=== PATIENT | male | born 1985 | race Caucasian/White ===

== ENCOUNTER 2019-12-31 15:01 | Emergency (ER) | payer MEDICAID ==
[~2019-12-31] VITALS: Ht 162.6 cm; Wt 59.0 kg
[~2019-12-31 15:01] MED LIST: ATEN50TA PO; FOLI1TAB87 PO; LOSA25TA26; NIFE60TA18 PO; RENAGEL PO; [UNRECOGNIZED DRUG - OTHER] PO
[2019-12-31 18:24] LABS: CHLORIDE 99 mEq/L (98-107)
[2019-12-31 18:27] LABS: BASOPHILS % 0.1 % (0.0-2.0); EOSINOPHILS % 0.9 % (0.0-5.0); HEMATOCRIT. 36.7 % (42.0-52.0); HEMOGLOBIN. 12.5 g/dL (14.0-18.0); LYMPHOCYTES % 16.9 % (20.0-50.0); MEAN CORPUSCULAR HEMOGLOBIN 32.7 pg (28.0-32.0); MEAN CORPUSCULAR VOLUME 96.2 fL (80.0-94.0); MONOCYTES % 7.6 % (2.0-8.0); NEUTROPHILS % 74.5 % (40.0-76.0); PLATELET 202 x1000/uL (130-400); RED BLOOD CELL COUNT 3.81 mill/uL (4.7-6.1); RED CELL DISTRIBUTION WIDTH 13.5 % (11.6-14.6)
[2019-12-31 20:00] VITALS: BP 134/86
== END 2019-12-31 20:43 | disposition home or self-care (01) ==
LOC: ER 15:01
DX: J06.9 Acute upper respiratory infection, unspecified (principal); Z03.818 Encounter for observation for suspected exposure to other biological agents ruled out; Z99.2 Dependence on renal dialysis; Z79.899 Other long term (current) drug therapy
CPT/HCPCS: 36415; 71045; 80053; 83880; 84484; 85025; 87635; 87804; 93005; 99285

== ENCOUNTER 2020-12-11 16:58 | Emergency (ER) | payer MEDICAID ==
[~2020-12-11] VITALS: Ht 162.6 cm; Wt 54.0 kg
[2020-12-11 18:57] VITALS: BP 115/71
== END 2020-12-11 19:17 | disposition home or self-care (01) ==
LOC: ER 16:58
DX: S80.02XA Contusion of left knee, initial encounter (principal); W18.39XA Other fall on same level, initial encounter; Y93.89 Activity, other specified; Y92.89 Other specified places as the place of occurrence of the external cause; Y99.8 Other external cause status; Z99.2 Dependence on renal dialysis; Z98.890 Other specified postprocedural states; Z79.899 Other long term (current) drug therapy
CPT/HCPCS: 73564; 99283

== ENCOUNTER 2022-07-20 14:19 | Inpatient (IN) | payer MEDICAID, OTHER ==
[~2022-07-20] VITALS: Ht 165.1 cm; Wt 68.0 kg
[2022-07-20] MEDS ORDERED: MORPHINE SULFATE 4 MG/ML CPJ (NOT FOR IM USE) IV ONE ×2 (17:00→20:45)
[2022-07-20 18:28] LABS: HEMATOCRIT. 31.6 % (42.0-52.0); HEMOGLOBIN. 10.5 g/dL (14.0-18.0); MEAN CORPUSCULAR HEMOGLOBIN 30.9 pg (28.0-32.0); MEAN CORPUSCULAR VOLUME 93.6 fL (80.0-94.0); MEAN PLATELET VOLUME 7.4 fl (7.4-10.4); PLATELET 224 x1000/uL (130-400); RED BLOOD CELL COUNT 3.38 mill/uL (4.7-6.1)
[2022-07-20 18:38] LABS: CHLORIDE 94 mEq/L (98-107)
[2022-07-20 19:01] LABS: ETHANOL BLOOD < 10 mg/dL
[2022-07-20] MEDS ORDERED: HYDRALAZINE 20MG/ML VIAL IV ONE (20:45)
[2022-07-20] MEDS ORDERED: ENOXAPARIN 30MG/0.3ML SYR SUBCUT SCH (21:00)
[2022-07-20] MEDS ORDERED: ONDANSETRON HCL 4MG/2ML INJ IV PRN (21:15)
[2022-07-20] MEDS ORDERED: ZOLPIDEM TARTRATE 5MG TABLET PO PRN (21:15)
[2022-07-20] MEDS: LOSARTAN POTASSIUM 50 MG TABLET PO SCH (22:02)
[2022-07-20 22:30] LABS: PLATELET ESTIMATE NORMAL
[2022-07-20] MEDS: FOLIC ACID/VITAMIN B COMP W-C TABLET PO SCH (22:46)
[2022-07-20] MEDS: HYDROMORPHONE HCL/PF 2MG/ML CPJ IV PRN (23:17)
[2022-07-20 23:57] LABS: INR 1.1; PROTHROMBIN TIME 11.7 sec (9.6-11.0)
[2022-07-21] VITALS (7 sets, daily range): BP systolic 115–189; BP diastolic 73–112
[2022-07-21] MEDS: HYDROMORPHONE HCL/PF 2MG/ML CPJ IV PRN ×5 (01:24→21:31)
[2022-07-21] MEDS: CLONIDINE 0.1MG TABLET PO PRN (01:32)
[2022-07-21] MEDS ORDERED: PNEUMOCOCCAL 23-VAL P-SAC VAC 0.5 ML IM ONE (04:45)
[2022-07-21] MEDS ORDERED: INFLUENZA VACCINE 05/PF 0.5 ML SYRINGE IM ONE (04:45)
[2022-07-21] MEDS ORDERED: HYDROCODONE/ACETAMINOPHEN 10/325MG TABLET PO PRN (08:00)
[2022-07-21] MEDS: ATENOLOL 50 MG TABLET PO SCH ×2 (08:55→14:58)
[2022-07-21] MEDS: NIFEDIPINE XL 60MG TAB PO SCH ×2 (09:58→10:02)
[2022-07-21] MEDS: LOSARTAN POTASSIUM 50 MG TABLET PO SCH (10:34)
[2022-07-21 14:32] LABS: HEPATITIS B SURFACE ANTIGEN NEGATIVE
[2022-07-21] MEDS: FOLIC ACID/VITAMIN B COMP W-C TABLET PO SCH (14:57)
[2022-07-21] MEDS ORDERED: OXYCODONE HCL/ACETAMINOPHEN 5/325MG TABLET PO PRN ×2 (16:15→16:45)
[2022-07-21] MEDS ORDERED: MORPHINE SULFATE 2 MG/ML CPJ (NOT FOR IM USE) IV PRN ×2 (16:15→16:45)
[2022-07-21] MEDS ORDERED: NALOXONE HCL 0.4MG/ML VIAL IV PRN (16:30)
[2022-07-21] MEDS ORDERED: OXYCODONE HCL/ACETAMINOPHEN 5/325MG TABLET PO NR (18:00)
[2022-07-21] MEDS ORDERED: MORPHINE SULFATE 4 MG/ML CPJ (NOT FOR IM USE) IV PRN (20:15)
[2022-07-22] VITALS: BP 133/78
[2022-07-22] MEDS: OXYCODONE HCL/ACETAMINOPHEN 5/325MG TABLET PO PRN ×5 (00:15→22:21)
[2022-07-22] MEDS: HYDROMORPHONE HCL/PF 2MG/ML CPJ IV PRN ×5 (01:59→18:58)
[2022-07-22 04:00] VITALS: BP 155/84
[2022-07-22 07:41] LABS: HEMATOCRIT. 35.7 % (42.0-52.0); HEMOGLOBIN. 11.8 g/dL (14.0-18.0); MEAN CORPUSCULAR HEMOGLOBIN 30.8 pg (28.0-32.0); MEAN PLATELET VOLUME 8.5 fl (7.4-10.4); PLATELET 258 x1000/uL (130-400); RED BLOOD CELL COUNT 3.84 mill/uL (4.7-6.1); RED CELL DISTRIBUTION WIDTH 15.2 % (11.6-14.6)
[2022-07-22 07:54] LABS: PHOSPHORUS 6.8 mg/dL (2.5-4.9)
[2022-07-22 08:06] VITALS: BP 141/85
[2022-07-22] MEDS: ATENOLOL 50 MG TABLET PO SCH (08:40)
[2022-07-22] MEDS: LOSARTAN POTASSIUM 50 MG TABLET PO SCH (08:40)
[2022-07-22] MEDS: NIFEDIPINE XL 60MG TAB PO SCH (08:41)
[2022-07-22] MEDS: FOLIC ACID/VITAMIN B COMP W-C TABLET PO SCH (08:41)
[2022-07-22] MEDS ORDERED: SODIUM POLYSTYRENE SULFONATE 15 G/60 ML BOT PO NR (09:15)
[2022-07-22] MEDS: DIPHENHYDRAMINE 25MG CAPSULE PO PRN (11:56)
[2022-07-22 12:00] VITALS: BP 146/81
[2022-07-22 13:23] LABS: PLATELET ESTIMATE NORMAL
[2022-07-22 16:00] VITALS: BP 113/64
[2022-07-22 20:00] VITALS: BP 112/71
[2022-07-23] VITALS: BP 129/77
[2022-07-23] MEDS: HYDROMORPHONE HCL/PF 2MG/ML CPJ IV PRN ×4 (00:41→21:40)
[2022-07-23 04:00] VITALS: BP 132/79
[2022-07-23] MEDS: OXYCODONE HCL/ACETAMINOPHEN 5/325MG TABLET PO PRN ×2 (04:08→14:14)
[2022-07-23 06:07] LABS: HEMATOCRIT. 31.7 % (42.0-52.0); HEMOGLOBIN. 10.6 g/dL (14.0-18.0); MEAN CORPUSCULAR HEMOGLOBIN 31.7 pg (28.0-32.0); MEAN CORPUSCULAR VOLUME 94.4 fL (80.0-94.0); MEAN PLATELET VOLUME 8.3 fl (7.4-10.4); PLATELET 228 x1000/uL (130-400); RED BLOOD CELL COUNT 3.36 mill/uL (4.7-6.1); RED CELL DISTRIBUTION WIDTH 15.3 % (11.6-14.6)
[2022-07-23 08:26] LABS: PHOSPHORUS 7.2 mg/dL (2.5-4.9)
[2022-07-23] MEDS: FOLIC ACID/VITAMIN B COMP W-C TABLET PO SCH (08:26)
[2022-07-23] MEDS: NIFEDIPINE XL 60MG TAB PO SCH (09:00)
[2022-07-23] MEDS: ATENOLOL 50 MG TABLET PO SCH (09:00)
[2022-07-23] MEDS ORDERED: SORBITOL 70% SOLN 30ML PO NR (09:15)
[2022-07-23 12:00] VITALS: BP 133/81
[2022-07-23 12:40] LABS: PLATELET ESTIMATE NORMAL
[2022-07-23] MEDS: SEVELAMER CARBONATE 800 MG TABLET PO SCH ×2 (14:14→17:56)
[2022-07-23 16:00] VITALS: BP 115/70
[2022-07-23 19:54] VITALS: BP 127/76
[2022-07-23] MEDS: POLYETHYLENE GLYCOL 3350 (17GM) 1 DOSE PACK PO SCH (21:00)
[2022-07-23 23:59] VITALS: BP 120/72
[2022-07-24] MEDS: OXYCODONE HCL/ACETAMINOPHEN 5/325MG TABLET PO PRN (00:04)
[2022-07-24 03:39] VITALS: BP 126/74
[2022-07-24] MEDS: HYDROMORPHONE HCL/PF 2MG/ML CPJ IV PRN ×5 (04:48→22:50)
[2022-07-24] MEDS: SEVELAMER CARBONATE 800 MG TABLET PO SCH ×2 (06:43→12:40)
[2022-07-24 07:08] LABS: BASOPHILS % 0.4 % (0.0-2.0); EOSINOPHILS % 0.5 % (0.0-5.0); HEMATOCRIT. 32.4 % (42.0-52.0); HEMOGLOBIN. 10.7 g/dL (14.0-18.0); LYMPHOCYTES % 14.1 % (20.0-50.0); MEAN CORPUSCULAR HEMOGLOBIN 31.2 pg (28.0-32.0); MEAN CORPUSCULAR VOLUME 94.1 fL (80.0-94.0); MONOCYTES % 8.1 % (2.0-8.0); NEUTROPHILS % 76.9 % (40.0-76.0); PLATELET 258 x1000/uL (130-400); RED BLOOD CELL COUNT 3.44 mill/uL (4.7-6.1); RED CELL DISTRIBUTION WIDTH 15.1 % (11.6-14.6)
[2022-07-24 08:00] VITALS: BP 137/78
[2022-07-24] MEDS: FOLIC ACID/VITAMIN B COMP W-C TABLET PO SCH (08:52)
[2022-07-24] MEDS: NIFEDIPINE XL 60MG TAB PO SCH (08:52)
[2022-07-24] MEDS: ATENOLOL 50 MG TABLET PO SCH (08:53)
[2022-07-24 09:20] LABS: PHOSPHORUS 7.6 mg/dL (2.5-4.9)
[2022-07-24 12:00] VITALS: BP 135/80
[2022-07-24 16:00] VITALS: BP 135/85
[2022-07-24] MEDS ORDERED: NALOXONE INJ IV PRN (16:00)
[2022-07-24] MEDS ORDERED: LIDOCAINE HCL 2%/EPINEPHRINE 1:100,000 20 ML VIAL INFIL ONE (16:26)
[2022-07-24] MEDS ORDERED: VANCOMYCIN HCL 1 GM/VIAL ONE (16:26)
[2022-07-24] MEDS ORDERED: HYDROCODONE/ACETAMINOPHEN 5/325MG TABLET PO PRN ×2 (17:00)
[2022-07-24] MEDS ORDERED: ROCURONIUM BROMIDE 10MG/ML VIAL 5ML IV ONE ×2 (17:01→17:50)
[2022-07-24] MEDS ORDERED: FENTANYL CITRATE/PF 50MCG/ML 2ML VIAL ONE (17:02)
[2022-07-24] MEDS ORDERED: MIDAZOLAM HCL 2 MG/2 ML VIAL ONE (17:02)
[2022-07-24] MEDS ORDERED: TRANEXAMIC ACID 1,000 MG in SODIUM CHLORIDE 0.9% 100 ML IV NR (17:45)
[2022-07-24] MEDS ORDERED: MEPERIDINE HCL/PF 25MG/ML CPJ IV PRN (18:15)
[2022-07-24] MEDS ORDERED: LABETALOL 5MG/ML SYR 20 MG/4 ML SYRINGE IV PRN (18:15)
[2022-07-24] MEDS ORDERED: ONDANSETRON HCL 4MG/2ML INJ IV PRN (18:15)
[2022-07-24] MEDS ORDERED: CEFAZOLIN 1000MG PREMIX 50 ML IV SCH (18:30)
[2022-07-24] MEDS ORDERED: HYDROMORPHONE HCL/PF 2MG/ML CPJ ONE (19:11)
[2022-07-24] MEDS: POLYETHYLENE GLYCOL 3350 (17GM) 1 DOSE PACK PO SCH (21:00)
[2022-07-24] MEDS: HYDROMORPHONE PCA 10MG/50ML IV PRN (22:16)
[2022-07-24] MEDS ORDERED: HYDRALAZINE 20MG/ML VIAL IV NR (23:45)
[2022-07-25] VITALS (11 sets, daily range): BP systolic 92–132; BP diastolic 56–80
[2022-07-25] MEDS: DIPHENHYDRAMINE 25MG CAPSULE PO PRN (04:11)
[2022-07-25 06:51] LABS: HEMATOCRIT. 29.9 % (42.0-52.0); HEMOGLOBIN. 10.2 g/dL (14.0-18.0); MEAN CORPUSCULAR HEMOGLOBIN 31.9 pg (28.0-32.0); MEAN PLATELET VOLUME 7.8 fl (7.4-10.4); PLATELET 288 x1000/uL (130-400); RED BLOOD CELL COUNT 3.18 mill/uL (4.7-6.1)
[2022-07-25] MEDS: ATENOLOL 50 MG TABLET PO SCH (08:39)
[2022-07-25] MEDS: SEVELAMER CARBONATE 800 MG TABLET PO SCH ×3 (08:39→16:49)
[2022-07-25] MEDS: NITROGLYCERIN 0.1MG/HR PATCH TOP SCH (08:40)
[2022-07-25] MEDS: NIFEDIPINE XL 60MG TAB PO SCH (08:40)
[2022-07-25] MEDS: FOLIC ACID/VITAMIN B COMP W-C TABLET PO SCH (08:40)
[2022-07-25 10:04] LABS: PLATELET ESTIMATE NORMAL
[2022-07-25 12:11] LABS: PHOSPHORUS 9.2 mg/dL (2.5-4.9)
[2022-07-25] MEDS: CALCIUM CARBONATE 500MG TABLET CHEW PO PRN ×2 (17:10→23:10)
[2022-07-25] MEDS: HYDROMORPHONE PCA 10MG/50ML IV PRN (20:23)
[2022-07-25] MEDS: POLYETHYLENE GLYCOL 3350 (17GM) 1 DOSE PACK PO SCH (20:35)
[2022-07-26] VITALS: BP 97/59
[2022-07-26 04:00] VITALS: BP 102/66
[2022-07-26 06:56] LABS: BASOPHILS % 0.2 % (0.0-2.0); EOSINOPHILS % 0.2 % (0.0-5.0); HEMOGLOBIN. 9.1 g/dL (14.0-18.0); LYMPHOCYTES % 13.6 % (20.0-50.0); MEAN CORPUSCULAR HEMOGLOBIN 31.8 pg (28.0-32.0); MEAN PLATELET VOLUME 7.9 fl (7.4-10.4); MONOCYTES % 10.3 % (2.0-8.0); NEUTROPHILS % 75.7 % (40.0-76.0); PLATELET 295 x1000/uL (130-400); RED BLOOD CELL COUNT 2.87 mill/uL (4.7-6.1); RED CELL DISTRIBUTION WIDTH 14.7 % (11.6-14.6)
[2022-07-26] MEDS: SEVELAMER CARBONATE 800 MG TABLET PO SCH ×3 (07:40→16:52)
[2022-07-26 08:00] VITALS: BP 104/56
[2022-07-26] MEDS: FOLIC ACID/VITAMIN B COMP W-C TABLET PO SCH (08:56)
[2022-07-26] MEDS: NIFEDIPINE XL 60MG TAB PO SCH (08:56)
[2022-07-26] MEDS: ATENOLOL 50 MG TABLET PO SCH (08:56)
[2022-07-26] MEDS: NITROGLYCERIN 0.1MG/HR PATCH TOP SCH (08:57)
[2022-07-26 10:49] LABS: PHOSPHORUS 7.7 mg/dL (2.5-4.9)
[2022-07-26] MEDS: PANTOPRAZOLE SODIUM 40 MG/VIAL IV SCH (11:11)
[2022-07-26 12:00] VITALS: BP 101/54
[2022-07-26 16:00] VITALS: BP 111/64
[2022-07-26] MEDS ORDERED: VANCOMYCIN HCL 1 GM/VIAL ONE (17:50)
[2022-07-26] MEDS ORDERED: LIDOCAINE HCL 2%/EPINEPHRINE 1:100,000 20 ML VIAL INFIL ONE (17:50)
[2022-07-26] MEDS ORDERED: FENTANYL CITRATE/PF 50MCG/ML 2ML VIAL ONE (18:05)
[2022-07-26] MEDS ORDERED: PROPOFOL 200MG/20ML VIAL IV ONE (18:06)
[2022-07-26] MEDS ORDERED: NEOSTIGMINE METHYLSULFATE 1MG/ML 10 ML VIAL ONE (18:06)
[2022-07-26] MEDS ORDERED: ROCURONIUM BROMIDE 10MG/ML VIAL 5ML IV ONE (18:06)
[2022-07-26] MEDS ORDERED: GLYCOPYRROLATE 0.2 MG/ML 2ML VIAL ONE ×2 (18:06→18:07)
[2022-07-26] MEDS ORDERED: DEXAMETHASONE 4MG/ML 1ML VIAL ONE (18:06)
[2022-07-26] MEDS ORDERED: SUCCINYLCHOLINE CHLORIDE 200MG/10ML IV ONE (18:06)
[2022-07-26] MEDS ORDERED: ONDANSETRON HCL 4MG/2ML INJ ONE (18:06)
[2022-07-26] MEDS ORDERED: LIDOCAINE HCL 1% 10 MG/ML 10ML VIAL ONE (18:06)
[2022-07-26] MEDS ORDERED: MIDAZOLAM HCL 2 MG/2 ML VIAL ONE (18:07)
[2022-07-26] MEDS ORDERED: LABETALOL 5MG/ML SYR 20 MG/4 ML SYRINGE IV PRN (18:45)
[2022-07-26] MEDS ORDERED: MEPERIDINE HCL/PF 25MG/ML CPJ IV PRN (18:45)
[2022-07-26] MEDS ORDERED: HYDROMORPHONE HCL/PF 2MG/ML CPJ IV PRN (18:45)
[2022-07-26] MEDS ORDERED: ONDANSETRON HCL 4MG/2ML INJ IV PRN (18:45)
[2022-07-26] MEDS ORDERED: CEFAZOLIN 1000MG PREMIX 50 ML IV SCH (20:00)
[2022-07-26] MEDS ORDERED: HYDRALAZINE 20MG/ML VIAL IV PRN (20:30)
[2022-07-26] MEDS: POLYETHYLENE GLYCOL 3350 (17GM) 1 DOSE PACK PO SCH (21:00)
[2022-07-27] VITALS: BP 123/67
[2022-07-27] MEDS: DIPHENHYDRAMINE 25MG CAPSULE PO PRN (03:14)
[2022-07-27 03:40] VITALS: BP 114/59
[2022-07-27 06:49] LABS: HEMATOCRIT. 24.5 % (42.0-52.0); HEMOGLOBIN. 7.9 g/dL (14.0-18.0); MEAN CORPUSCULAR HEMOGLOBIN 30.6 pg (28.0-32.0); MEAN CORPUSCULAR VOLUME 94.2 fL (80.0-94.0); MEAN PLATELET VOLUME 7.7 fl (7.4-10.4); PLATELET 283 x1000/uL (130-400); RED CELL DISTRIBUTION WIDTH 14.7 % (11.6-14.6)
[2022-07-27 08:00] VITALS: BP 120/69
[2022-07-27] MEDS: SEVELAMER CARBONATE 800 MG TABLET PO SCH ×3 (08:27→17:41)
[2022-07-27] MEDS: FOLIC ACID/VITAMIN B COMP W-C TABLET PO SCH (08:28)
[2022-07-27] MEDS: ATENOLOL 50 MG TABLET PO SCH (08:28)
[2022-07-27] MEDS: PANTOPRAZOLE SODIUM 40 MG/VIAL IV SCH (08:28)
[2022-07-27] MEDS: NITROGLYCERIN 0.1MG/HR PATCH TOP SCH (08:29)
[2022-07-27] MEDS: NIFEDIPINE XL 60MG TAB PO SCH (08:29)
[2022-07-27 08:46] LABS: PLATELET ESTIMATE NORMAL
[2022-07-27 08:50] LABS: PHOSPHORUS 7.9 mg/dL (2.5-4.9)
[2022-07-27 12:00] VITALS: BP 136/70
[2022-07-27 16:00] VITALS: BP 116/61
[2022-07-27] MEDS: CINACALCET HCL 30MG TABLET PO SCH (17:41)
[2022-07-27 20:00] VITALS: BP 131/79
[2022-07-27] MEDS: POLYETHYLENE GLYCOL 3350 (17GM) 1 DOSE PACK PO SCH (22:12)
[2022-07-28] VITALS: BP 121/75
[2022-07-28 04:00] VITALS: BP 116/70
[2022-07-28 08:00] VITALS: BP 122/80
[2022-07-28] MEDS: NITROGLYCERIN 0.1MG/HR PATCH TOP SCH (09:00)
[2022-07-28] MEDS: PANTOPRAZOLE SODIUM 40 MG/VIAL IV SCH (09:07)
[2022-07-28] MEDS: SEVELAMER CARBONATE 800 MG TABLET PO SCH ×3 (09:09→17:34)
[2022-07-28] MEDS: ATENOLOL 50 MG TABLET PO SCH (09:09)
[2022-07-28] MEDS: NIFEDIPINE XL 60MG TAB PO SCH (09:09)
[2022-07-28 09:20] LABS: BASOPHILS % 0.4 % (0.0-2.0); EOSINOPHILS % 0.4 % (0.0-5.0); HEMOGLOBIN. 7.7 g/dL (14.0-18.0); LYMPHOCYTES % 9.7 % (20.0-50.0); MEAN CORPUSCULAR HEMOGLOBIN 31.7 pg (28.0-32.0); MEAN CORPUSCULAR VOLUME 94.3 fL (80.0-94.0); MEAN PLATELET VOLUME 7.6 fl (7.4-10.4); MONOCYTES % 12.3 % (2.0-8.0); NEUTROPHILS % 77.2 % (40.0-76.0); PLATELET 284 x1000/uL (130-400); RED BLOOD CELL COUNT 2.44 mill/uL (4.7-6.1); RED CELL DISTRIBUTION WIDTH 14.4 % (11.6-14.6)
[2022-07-28] MEDS ORDERED: LACTULOSE 20G/30ML UDC PO PRN (09:30)
[2022-07-28] MEDS ORDERED: HYDROCODONE/ACETAMINOPHEN 5/325MG TABLET PO PRN ×2 (09:30)
[2022-07-28] MEDS: FOLIC ACID/VITAMIN B COMP W-C TABLET PO SCH (10:49)
[2022-07-28 10:50] LABS: PHOSPHORUS 5.2 mg/dL (2.5-4.9)
[2022-07-28 12:00] VITALS: BP 130/73
[2022-07-28 16:00] VITALS: BP 123/69
[2022-07-28] MEDS: ACETAMINOPHEN 325MG TABLET PO PRN (17:34)
[2022-07-28] MEDS: CINACALCET HCL 30MG TABLET PO SCH (17:34)
[2022-07-28 20:00] VITALS: BP 125/69
[2022-07-28] MEDS: POLYETHYLENE GLYCOL 3350 (17GM) 1 DOSE PACK PO SCH (21:57)
[2022-07-28] MEDS: HYDROCODONE/ACETAMINOPHEN 5/325MG TABLET PO PRN (23:21)
[2022-07-29 04:00] VITALS: BP 109/60
[2022-07-29 07:26] LABS: BASOPHILS % 0.2 % (0.0-2.0); EOSINOPHILS % 1.3 % (0.0-5.0); HEMATOCRIT. 22.7 % (42.0-52.0); HEMOGLOBIN. 7.6 g/dL (14.0-18.0); LYMPHOCYTES % 11.5 % (20.0-50.0); MEAN CORPUSCULAR HEMOGLOBIN 31.2 pg (28.0-32.0); MEAN CORPUSCULAR VOLUME 92.8 fL (80.0-94.0); MEAN PLATELET VOLUME 7.5 fl (7.4-10.4); MONOCYTES % 12.6 % (2.0-8.0); NEUTROPHILS % 74.4 % (40.0-76.0); PLATELET 305 x1000/uL (130-400); RED BLOOD CELL COUNT 2.45 mill/uL (4.7-6.1); RED CELL DISTRIBUTION WIDTH 14.2 % (11.6-14.6)
[2022-07-29 08:06] VITALS: BP 104/65
[2022-07-29 08:40] LABS: PHOSPHORUS 5.5 mg/dL (2.5-4.9)
[2022-07-29] MEDS: NITROGLYCERIN 0.1MG/HR PATCH TOP SCH (09:00)
[2022-07-29] MEDS: NIFEDIPINE XL 60MG TAB PO SCH (09:00)
[2022-07-29] MEDS: FOLIC ACID/VITAMIN B COMP W-C TABLET PO SCH (09:18)
[2022-07-29] MEDS: PANTOPRAZOLE SODIUM 40 MG/VIAL IV SCH (09:18)
[2022-07-29] MEDS: SEVELAMER CARBONATE 800 MG TABLET PO SCH ×3 (09:19→18:43)
[2022-07-29] MEDS: ATENOLOL 50 MG TABLET PO SCH (09:45)
[2022-07-29 12:00] VITALS: BP 96/59
[2022-07-29 16:14] VITALS: BP 104/62
[2022-07-29] MEDS ORDERED: LACTULOSE 20G/30ML UDC PO PRN (17:45)
[2022-07-29] MEDS: IRON SUCROSE COMPLEX 100 MG/5 ML ML IV SCH (18:43)
[2022-07-29] MEDS: CINACALCET HCL 30MG TABLET PO SCH (18:43)
[2022-07-29 20:00] VITALS: BP 110/67
[2022-07-29] MEDS ORDERED: EPOETIN ALFA-EPBX 4,000 UNIT/ML VIAL SUBCUT SCH (21:00)
[2022-07-29] MEDS: POLYETHYLENE GLYCOL 3350 (17GM) 1 DOSE PACK PO SCH (21:00)
[2022-07-30] VITALS (12 sets, daily range): BP systolic 101–130; BP diastolic 55–90
[2022-07-30 07:04] LABS: BASOPHILS % 0.5 % (0.0-2.0); EOSINOPHILS % 1.8 % (0.0-5.0); HEMATOCRIT. 21.2 % (42.0-52.0); HEMOGLOBIN. 7.1 g/dL (14.0-18.0); LYMPHOCYTES % 13.5 % (20.0-50.0); MEAN CORPUSCULAR HEMOGLOBIN 30.6 pg (28.0-32.0); MEAN CORPUSCULAR VOLUME 91.9 fL (80.0-94.0); MEAN PLATELET VOLUME 7.5 fl (7.4-10.4); MONOCYTES % 10.5 % (2.0-8.0); NEUTROPHILS % 73.7 % (40.0-76.0); PLATELET 320 x1000/uL (130-400); RED BLOOD CELL COUNT 2.31 mill/uL (4.7-6.1); RED CELL DISTRIBUTION WIDTH 14.4 % (11.6-14.6)
[2022-07-30] MEDS: NITROGLYCERIN 0.1MG/HR PATCH TOP SCH (08:46)
[2022-07-30] MEDS: PANTOPRAZOLE SODIUM 40 MG/VIAL IV SCH (08:48)
[2022-07-30] MEDS: SEVELAMER CARBONATE 800 MG TABLET PO SCH ×3 (08:48→17:48)
[2022-07-30] MEDS: FOLIC ACID/VITAMIN B COMP W-C TABLET PO SCH (08:48)
[2022-07-30] MEDS: NIFEDIPINE XL 60MG TAB PO SCH (08:49)
[2022-07-30] MEDS: ATENOLOL 50 MG TABLET PO SCH (08:49)
[2022-07-30 09:29] LABS: PHOSPHORUS 5.7 mg/dL (2.5-4.9)
[2022-07-30] MEDS: CINACALCET HCL 30MG TABLET PO SCH (17:48)
[2022-07-30] MEDS: IRON SUCROSE COMPLEX 100 MG/5 ML ML IV SCH (17:49)
[2022-07-30] MEDS ORDERED: BISACODYL 10MG SUPP PR NR ×2 (18:15→21:00)
[2022-07-30] MEDS ORDERED: NA PHOS,M-B/NA PHOS,DI-BA ENEMA 118ML PR NR ×2 (18:15→21:00)
[2022-07-30] MEDS: ACETAMINOPHEN 325MG TABLET PO PRN (18:27)
[2022-07-30 18:30] LABS: HEMATOCRIT 24.4 % (42.0-52.0); HEMOGLOBIN 8.3 g/dL (14.0-18.0); MEAN CORPUSCULAR HEMOGLOBIN 31.5 pg (28.0-32.0); MEAN CORPUSCULAR VOLUME 92.9 fL (80.0-94.0); PLATELET 367 x1000/uL (130-400); RED BLOOD CELL COUNT 2.63 mill/uL (4.7-6.1); RED CELL DISTRIBUTION WIDTH 14.4 % (11.6-14.6)
[2022-07-30] MEDS ORDERED: NALOXONE HCL 0.4MG/ML VIAL IV PRN (19:00)
[2022-07-30] MEDS: POLYETHYLENE GLYCOL 3350 (17GM) 1 DOSE PACK PO SCH (21:05)
[2022-07-31] VITALS: BP 136/74
[2022-07-31] MEDS: ACETAMINOPHEN 325MG TABLET PO PRN (01:26)
[2022-07-31] MEDS: DIPHENHYDRAMINE 25MG CAPSULE PO PRN (01:26)
[2022-07-31 08:00] VITALS: BP 113/67
[2022-07-31 08:12] LABS: HEMOGLOBIN. 7.6 g/dL (14.0-18.0); MEAN CORPUSCULAR HEMOGLOBIN 31.6 pg (28.0-32.0); MEAN CORPUSCULAR VOLUME 92.1 fL (80.0-94.0); MEAN PLATELET VOLUME 7.5 fl (7.4-10.4); PLATELET 345 x1000/uL (130-400); RED BLOOD CELL COUNT 2.39 mill/uL (4.7-6.1); RED CELL DISTRIBUTION WIDTH 14.2 % (11.6-14.6)
[2022-07-31 08:16] LABS: INR 1.2; PROTHROMBIN TIME 12.7 sec (9.6-11.0)
[2022-07-31] MEDS: ATENOLOL 50 MG TABLET PO SCH (08:19)
[2022-07-31] MEDS: FOLIC ACID/VITAMIN B COMP W-C TABLET PO SCH (08:20)
[2022-07-31] MEDS: SEVELAMER CARBONATE 800 MG TABLET PO SCH ×3 (08:20→17:11)
[2022-07-31] MEDS: PANTOPRAZOLE SODIUM 40 MG/VIAL IV SCH (08:20)
[2022-07-31] MEDS: NIFEDIPINE XL 60MG TAB PO SCH (08:20)
[2022-07-31] MEDS: NITROGLYCERIN 0.1MG/HR PATCH TOP SCH (08:20)
[2022-07-31 10:05] LABS: PHOSPHORUS 4.1 mg/dL (2.5-4.9)
[2022-07-31 12:00] VITALS: BP 114/66
[2022-07-31] MEDS: CALCITRIOL 0.25MCG CAPSULE PO SCH (15:38)
[2022-07-31 15:48] VITALS: BP 102/58
[2022-07-31] MEDS: IRON SUCROSE COMPLEX 100 MG/5 ML ML IV SCH (17:11)
[2022-07-31 17:15] LABS: PLATELET ESTIMATE NORMAL
[2022-07-31 20:00] VITALS: BP 100/55
[2022-07-31] MEDS: POLYETHYLENE GLYCOL 3350 (17GM) 1 DOSE PACK PO SCH (20:40)
[2022-08-01] VITALS (11 sets, daily range): BP systolic 110–137; BP diastolic 58–83
[2022-08-01] MEDS: HYDROCODONE/ACETAMINOPHEN 5/325MG TABLET PO PRN (00:11)
[2022-08-01] MEDS: SEVELAMER CARBONATE 800 MG TABLET PO SCH ×3 (08:03→17:49)
[2022-08-01 08:25] LABS: BASOPHILS % 0.1 % (0.0-2.0); EOSINOPHILS % 1.6 % (0.0-5.0); LYMPHOCYTES % 14.9 % (20.0-50.0); MEAN CORPUSCULAR HEMOGLOBIN 30.4 pg (28.0-32.0); MEAN PLATELET VOLUME 7.6 fl (7.4-10.4); MONOCYTES % 10.3 % (2.0-8.0); NEUTROPHILS % 73.1 % (40.0-76.0); PLATELET 402 x1000/uL (130-400); RED BLOOD CELL COUNT 2.19 mill/uL (4.7-6.1); RED CELL DISTRIBUTION WIDTH 14.5 % (11.6-14.6)
[2022-08-01 08:50] LABS: HEMATOCRIT. 20.4 % (42.0-52.0); HEMOGLOBIN. 6.7 g/dL (14.0-18.0)
[2022-08-01] MEDS: CALCITRIOL 0.25MCG CAPSULE PO SCH (09:53)
[2022-08-01] MEDS: FOLIC ACID/VITAMIN B COMP W-C TABLET PO SCH (09:53)
[2022-08-01] MEDS: NIFEDIPINE XL 60MG TAB PO SCH (09:54)
[2022-08-01] MEDS: ATENOLOL 50 MG TABLET PO SCH (09:54)
[2022-08-01] MEDS: NITROGLYCERIN 0.1MG/HR PATCH TOP SCH (09:58)
[2022-08-01] MEDS: PANTOPRAZOLE SODIUM 40 MG/VIAL IV SCH (14:23)
[2022-08-01 17:20] LABS: PHOSPHORUS 5.1 mg/dL (2.5-4.9)
[2022-08-01] MEDS: POLYETHYLENE GLYCOL 3350 (17GM) 1 DOSE PACK PO SCH (21:40)
[2022-08-01] MEDS: IRON SUCROSE COMPLEX 100 MG/5 ML ML IV SCH (21:49)
[2022-08-02] MEDS: ACETAMINOPHEN 325MG TABLET PO PRN ×3 (01:24→21:54)
[2022-08-02 04:00] VITALS: BP 114/70
[2022-08-02 07:40] LABS: BASOPHILS % 0.3 % (0.0-2.0); EOSINOPHILS % 1.2 % (0.0-5.0); LYMPHOCYTES % 14.8 % (20.0-50.0); MEAN CORPUSCULAR HEMOGLOBIN 31.8 pg (28.0-32.0); MEAN CORPUSCULAR VOLUME 93.2 fL (80.0-94.0); MEAN PLATELET VOLUME 7.4 fl (7.4-10.4); MONOCYTES % 9.5 % (2.0-8.0); NEUTROPHILS % 74.2 % (40.0-76.0); PLATELET 399 x1000/uL (130-400); RED BLOOD CELL COUNT 2.21 mill/uL (4.7-6.1); RED CELL DISTRIBUTION WIDTH 14.5 % (11.6-14.6)
[2022-08-02 08:00] VITALS: BP 114/59
[2022-08-02] MEDS: PANTOPRAZOLE SODIUM 40 MG/VIAL IV SCH (08:02)
[2022-08-02] MEDS: NIFEDIPINE XL 60MG TAB PO SCH (08:03)
[2022-08-02] MEDS: ATENOLOL 50 MG TABLET PO SCH (08:03)
[2022-08-02] MEDS: CALCITRIOL 0.25MCG CAPSULE PO SCH (08:03)
[2022-08-02] MEDS: FOLIC ACID/VITAMIN B COMP W-C TABLET PO SCH (08:03)
[2022-08-02] MEDS: SEVELAMER CARBONATE 800 MG TABLET PO SCH ×3 (08:03→18:02)
[2022-08-02 08:16] LABS: HEMATOCRIT. 20.6 % (42.0-52.0)
[2022-08-02] MEDS: NITROGLYCERIN 0.1MG/HR PATCH TOP SCH (11:46)
[2022-08-02 12:00] VITALS: BP 136/82
[2022-08-02 16:00] VITALS: BP 105/58
[2022-08-02 20:00] VITALS: BP 124/69
[2022-08-02] MEDS: POLYETHYLENE GLYCOL 3350 (17GM) 1 DOSE PACK PO SCH (21:00)
[2022-08-02] MEDS: IRON SUCROSE COMPLEX 100 MG/5 ML ML IV SCH (21:53)
[2022-08-02] MEDS: CEPHALEXIN 250MG CAPSULE PO SCH (21:53)
[2022-08-03] VITALS (9 sets, daily range): BP systolic 125–155; BP diastolic 64–92
[2022-08-03] MEDS: CEPHALEXIN 250MG CAPSULE PO SCH ×3 (06:54→21:33)
[2022-08-03 07:11] LABS: BASOPHILS % 0.4 % (0.0-2.0); EOSINOPHILS % 1.1 % (0.0-5.0); LYMPHOCYTES % 13.6 % (20.0-50.0); MEAN CORPUSCULAR HEMOGLOBIN 31.6 pg (28.0-32.0); MEAN CORPUSCULAR VOLUME 94.2 fL (80.0-94.0); MEAN PLATELET VOLUME 7.5 fl (7.4-10.4); MONOCYTES % 7.2 % (2.0-8.0); NEUTROPHILS % 77.7 % (40.0-76.0); PLATELET 470 x1000/uL (130-400); RED BLOOD CELL COUNT 1.95 mill/uL (4.7-6.1); RED CELL DISTRIBUTION WIDTH 14.4 % (11.6-14.6)
[2022-08-03 08:06] LABS: HEMATOCRIT. 18.4 % (42.0-52.0); HEMOGLOBIN. 6.2 g/dL (14.0-18.0)
[2022-08-03] MEDS: FOLIC ACID/VITAMIN B COMP W-C TABLET PO SCH (08:13)
[2022-08-03] MEDS: PANTOPRAZOLE SODIUM 40 MG/VIAL IV SCH (08:13)
[2022-08-03] MEDS: SEVELAMER CARBONATE 800 MG TABLET PO SCH ×3 (08:13→17:13)
[2022-08-03] MEDS: CALCITRIOL 0.25MCG CAPSULE PO SCH (08:13)
[2022-08-03] MEDS: NIFEDIPINE XL 60MG TAB PO SCH (08:14)
[2022-08-03] MEDS: ATENOLOL 50 MG TABLET PO SCH (08:14)
[2022-08-03] MEDS: NITROGLYCERIN 0.1MG/HR PATCH TOP SCH (08:14)
[2022-08-03] MEDS ORDERED: HYDROCODONE/ACETAMINOPHEN 5/325MG TABLET PO PRN (10:15)
[2022-08-03] MEDS: IRON SUCROSE COMPLEX 100 MG/5 ML ML IV SCH (21:33)
[2022-08-03] MEDS: POLYETHYLENE GLYCOL 3350 (17GM) 1 DOSE PACK PO SCH (21:33)
[2022-08-04] VITALS (10 sets, daily range): BP systolic 116–153; BP diastolic 64–86
[2022-08-04] MEDS: CEPHALEXIN 250MG CAPSULE PO SCH ×3 (05:47→21:41)
[2022-08-04 07:24] LABS: BASOPHILS % 0.3 % (0.0-2.0); EOSINOPHILS % 0.7 % (0.0-5.0); LYMPHOCYTES % 12.3 % (20.0-50.0); MEAN CORPUSCULAR HEMOGLOBIN 32.7 pg (28.0-32.0); MEAN CORPUSCULAR VOLUME 93.5 fL (80.0-94.0); MEAN PLATELET VOLUME 7.3 fl (7.4-10.4); MONOCYTES % 7.3 % (2.0-8.0); NEUTROPHILS % 79.4 % (40.0-76.0); PLATELET 429 x1000/uL (130-400); RED BLOOD CELL COUNT 2.11 mill/uL (4.7-6.1); RED CELL DISTRIBUTION WIDTH 14.4 % (11.6-14.6)
[2022-08-04 07:43] LABS: PHOSPHORUS 3.4 mg/dL (2.5-4.9)
[2022-08-04 07:46] LABS: HEMATOCRIT. 19.7 % (42.0-52.0); HEMOGLOBIN. 6.9 g/dL (14.0-18.0)
[2022-08-04] MEDS: PANTOPRAZOLE SODIUM 40 MG/VIAL IV SCH (08:47)
[2022-08-04] MEDS: NIFEDIPINE XL 60MG TAB PO SCH (08:48)
[2022-08-04] MEDS: SEVELAMER CARBONATE 800 MG TABLET PO SCH ×3 (08:48→17:18)
[2022-08-04] MEDS: FOLIC ACID/VITAMIN B COMP W-C TABLET PO SCH (08:48)
[2022-08-04] MEDS: ATENOLOL 50 MG TABLET PO SCH (08:48)
[2022-08-04] MEDS: NITROGLYCERIN 0.1MG/HR PATCH TOP SCH (08:49)
[2022-08-04] MEDS: CALCITRIOL 0.25MCG CAPSULE PO SCH (08:49)
[2022-08-04] MEDS: POLYETHYLENE GLYCOL 3350 (17GM) 1 DOSE PACK PO SCH (21:41)
[2022-08-05] VITALS (13 sets, daily range): BP systolic 112–158; BP diastolic 62–86
[2022-08-05] MEDS: CEPHALEXIN 250MG CAPSULE PO SCH ×3 (05:24→20:33)
[2022-08-05 06:39] LABS: BASOPHILS % 0.4 % (0.0-2.0); EOSINOPHILS % 0.9 % (0.0-5.0); LYMPHOCYTES % 11.6 % (20.0-50.0); MEAN CORPUSCULAR HEMOGLOBIN 32.2 pg (28.0-32.0); MEAN CORPUSCULAR VOLUME 93.9 fL (80.0-94.0); MEAN PLATELET VOLUME 6.9 fl (7.4-10.4); MONOCYTES % 6.7 % (2.0-8.0); NEUTROPHILS % 80.4 % (40.0-76.0); PLATELET 421 x1000/uL (130-400); RED BLOOD CELL COUNT 2.14 mill/uL (4.7-6.1); RED CELL DISTRIBUTION WIDTH 14.5 % (11.6-14.6)
[2022-08-05 06:50] LABS: PHOSPHORUS 4.1 mg/dL (2.5-4.9)
[2022-08-05 08:03] LABS: HEMATOCRIT. 20.1 % (42.0-52.0); HEMOGLOBIN. 6.9 g/dL (14.0-18.0)
[2022-08-05] MEDS: FOLIC ACID/VITAMIN B COMP W-C TABLET PO SCH (08:59)
[2022-08-05] MEDS: SEVELAMER CARBONATE 800 MG TABLET PO SCH ×3 (09:00→17:20)
[2022-08-05] MEDS: NIFEDIPINE XL 60MG TAB PO SCH (09:00)
[2022-08-05] MEDS: NITROGLYCERIN 0.1MG/HR PATCH TOP SCH (09:00)
[2022-08-05] MEDS: ATENOLOL 50 MG TABLET PO SCH (09:00)
[2022-08-05] MEDS: CALCITRIOL 0.25MCG CAPSULE PO SCH (09:00)
[2022-08-05] MEDS: PANTOPRAZOLE SODIUM 40 MG/VIAL IV SCH (09:00)
[2022-08-05] MEDS: POLYETHYLENE GLYCOL 3350 (17GM) 1 DOSE PACK PO SCH (20:33)
[2022-08-06] VITALS: BP 130/68
[2022-08-06 04:00] VITALS: BP 128/72
[2022-08-06 06:37] LABS: BASOPHILS % 0.4 % (0.0-2.0); EOSINOPHILS % 0.7 % (0.0-5.0); HEMOGLOBIN. 7.1 g/dL (14.0-18.0); LYMPHOCYTES % 11.7 % (20.0-50.0); MEAN CORPUSCULAR HEMOGLOBIN 31.9 pg (28.0-32.0); MEAN CORPUSCULAR VOLUME 93.9 fL (80.0-94.0); MEAN PLATELET VOLUME 7.2 fl (7.4-10.4); MONOCYTES % 5.9 % (2.0-8.0); NEUTROPHILS % 81.3 % (40.0-76.0); PLATELET 456 x1000/uL (130-400); RED BLOOD CELL COUNT 2.23 mill/uL (4.7-6.1); RED CELL DISTRIBUTION WIDTH 15.3 % (11.6-14.6)
[2022-08-06] MEDS: CEPHALEXIN 250MG CAPSULE PO SCH ×3 (06:43→21:59)
[2022-08-06 08:00] VITALS: BP 112/61
[2022-08-06] MEDS: NIFEDIPINE XL 60MG TAB PO SCH (09:48)
[2022-08-06] MEDS: PANTOPRAZOLE SODIUM 40 MG/VIAL IV SCH (09:48)
[2022-08-06] MEDS: FOLIC ACID/VITAMIN B COMP W-C TABLET PO SCH (09:48)
[2022-08-06] MEDS: CALCITRIOL 0.25MCG CAPSULE PO SCH (09:49)
[2022-08-06] MEDS: ATENOLOL 50 MG TABLET PO SCH (09:49)
[2022-08-06] MEDS: SEVELAMER CARBONATE 800 MG TABLET PO SCH ×3 (09:49→17:52)
[2022-08-06] MEDS: NITROGLYCERIN 0.1MG/HR PATCH TOP SCH (09:51)
[2022-08-06 12:00] VITALS: BP 133/86
[2022-08-06] MEDS ORDERED: IRON SUCROSE COMPLEX 100 MG/5 ML ML IV SCH (15:00)
[2022-08-06 16:00] VITALS: BP 116/65
[2022-08-06 20:00] VITALS: BP 127/69
[2022-08-06] MEDS: POLYETHYLENE GLYCOL 3350 (17GM) 1 DOSE PACK PO SCH (21:00)
[2022-08-06] MEDS: EPOETIN ALFA-EPBX 10,000 UNIT/ML VIAL SUBCUT SCH (21:59)
[2022-08-07] VITALS (11 sets, daily range): BP systolic 96–154; BP diastolic 48–84
[2022-08-07] MEDS: CEPHALEXIN 250MG CAPSULE PO SCH ×2 (06:53→14:33)
[2022-08-07] MEDS: SEVELAMER CARBONATE 800 MG TABLET PO SCH ×2 (06:53→12:13)
[2022-08-07 08:17] LABS: BASOPHILS % 0.5 % (0.0-2.0); LYMPHOCYTES % 12.6 % (20.0-50.0); MEAN CORPUSCULAR VOLUME 94.5 fL (80.0-94.0); NEUTROPHILS % 79.9 % (40.0-76.0); PLATELET 376 x1000/uL (130-400); RED BLOOD CELL COUNT 2.09 mill/uL (4.7-6.1); RED CELL DISTRIBUTION WIDTH 14.7 % (11.6-14.6)
[2022-08-07 08:41] LABS: HEMATOCRIT. 19.7 % (42.0-52.0); HEMOGLOBIN. 6.7 g/dL (14.0-18.0)
[2022-08-07] MEDS: CALCITRIOL 0.25MCG CAPSULE PO SCH (09:00)
[2022-08-07] MEDS: ATENOLOL 50 MG TABLET PO SCH (09:00)
[2022-08-07] MEDS: FOLIC ACID/VITAMIN B COMP W-C TABLET PO SCH (09:00)
[2022-08-07] MEDS: NIFEDIPINE XL 60MG TAB PO SCH (09:00)
[2022-08-07] MEDS: PANTOPRAZOLE SODIUM 40 MG/VIAL IV SCH (09:00)
[2022-08-07] MEDS: NITROGLYCERIN 0.1MG/HR PATCH TOP SCH (09:00)
[2022-08-07 09:49] LABS: PHOSPHORUS 4.8 mg/dL (2.5-4.9)
[2022-08-07] MEDS ORDERED: NALOXONE HCL 0.4MG/ML VIAL IV PRN (19:00)
[2022-08-07] MEDS: IRON SUCROSE COMPLEX 100 MG/5 ML ML IV SCH (20:50)
[2022-08-07] MEDS: POLYETHYLENE GLYCOL 3350 (17GM) 1 DOSE PACK PO SCH (20:50)
[2022-08-08] VITALS (19 sets, daily range): BP systolic 119–154; BP diastolic 69–90
[2022-08-08 06:29] LABS: BASOPHILS % 0.1 % (0.0-2.0); EOSINOPHILS % 0.8 % (0.0-5.0); HEMATOCRIT. 21.7 % (42.0-52.0); HEMOGLOBIN. 7.2 g/dL (14.0-18.0); LYMPHOCYTES % 11.7 % (20.0-50.0); MEAN CORPUSCULAR HEMOGLOBIN 31.9 pg (28.0-32.0); MEAN CORPUSCULAR VOLUME 95.6 fL (80.0-94.0); MEAN PLATELET VOLUME 6.7 fl (7.4-10.4); MONOCYTES % 6.9 % (2.0-8.0); NEUTROPHILS % 80.5 % (40.0-76.0); PLATELET 356 x1000/uL (130-400); RED BLOOD CELL COUNT 2.27 mill/uL (4.7-6.1); RED CELL DISTRIBUTION WIDTH 15.5 % (11.6-14.6)
[2022-08-08 06:35] LABS: INR 1.1; PARTIAL THROMBOPLASTIN TIME 36.5 sec (23.4-31.0); PROTHROMBIN TIME 11.3 sec (9.6-11.0)
[2022-08-08 07:14] LABS: PHOSPHORUS 4.1 mg/dL (2.5-4.9)
[2022-08-08] MEDS: SEVELAMER CARBONATE 800 MG TABLET PO SCH ×4 (08:57→17:27)
[2022-08-08] MEDS: FOLIC ACID/VITAMIN B COMP W-C TABLET PO SCH (09:00)
[2022-08-08] MEDS: NIFEDIPINE XL 60MG TAB PO SCH (12:58)
[2022-08-08] MEDS: CALCITRIOL 0.25MCG CAPSULE PO SCH (12:58)
[2022-08-08] MEDS: ATENOLOL 50 MG TABLET PO SCH (12:59)
[2022-08-08] MEDS: NITROGLYCERIN 0.1MG/HR PATCH TOP SCH (13:00)
[2022-08-08] MEDS: PANTOPRAZOLE SODIUM 40 MG/VIAL IV SCH (13:02)
[2022-08-08] MEDS: EPOETIN ALFA-EPBX 10,000 UNIT/ML VIAL SUBCUT SCH (22:00)
[2022-08-08] MEDS: POLYETHYLENE GLYCOL 3350 (17GM) 1 DOSE PACK PO SCH (22:00)
[2022-08-08] MEDS: IRON SUCROSE COMPLEX 100 MG/5 ML ML IV SCH (22:00)
[2022-08-09] VITALS: BP 127/75
[2022-08-09 04:00] VITALS: BP 115/69
[2022-08-09] MEDS: SEVELAMER CARBONATE 800 MG TABLET PO SCH ×3 (07:50→17:50)
[2022-08-09 08:00] VITALS: BP 144/84
[2022-08-09] MEDS: PANTOPRAZOLE SODIUM 40 MG/VIAL IV SCH (08:12)
[2022-08-09] MEDS: CALCITRIOL 0.25MCG CAPSULE PO SCH (08:13)
[2022-08-09] MEDS: NIFEDIPINE XL 60MG TAB PO SCH (08:13)
[2022-08-09] MEDS: NITROGLYCERIN 0.1MG/HR PATCH TOP SCH (08:14)
[2022-08-09] MEDS: FOLIC ACID/VITAMIN B COMP W-C TABLET PO SCH (08:14)
[2022-08-09] MEDS: ATENOLOL 50 MG TABLET PO SCH (08:14)
[2022-08-09 12:00] VITALS: BP 140/80
[2022-08-09 12:12] LABS: HEMOGLOBIN 9.8 g/dL (14.0-18.0)
[2022-08-09] MEDS ORDERED: DEXAMETHASONE 4MG/ML 1ML VIAL ONE (13:17)
[2022-08-09] MEDS ORDERED: SUCCINYLCHOLINE CHLORIDE 200MG/10ML IV ONE (13:17)
[2022-08-09] MEDS ORDERED: ROCURONIUM BROMIDE 10MG/ML VIAL 5ML IV ONE ×2 (13:17→15:06)
[2022-08-09] MEDS ORDERED: NEOSTIGMINE METHYLSULFATE 1MG/ML 10 ML VIAL ONE (13:17)
[2022-08-09] MEDS ORDERED: ONDANSETRON HCL 4MG/2ML INJ ONE (13:17)
[2022-08-09] MEDS ORDERED: GLYCOPYRROLATE 0.2 MG/ML 2ML VIAL ONE ×2 (13:18→13:19)
[2022-08-09] MEDS ORDERED: PROPOFOL 200MG/20ML VIAL IV ONE (13:18)
[2022-08-09] MEDS ORDERED: LIDOCAINE HCL 1% 20ML VIAL (Pyxis) INJ ONE (13:18)
[2022-08-09] MEDS ORDERED: FENTANYL CITRATE/PF 50MCG/ML 2ML VIAL ONE (13:19)
[2022-08-09] MEDS ORDERED: MIDAZOLAM HCL 2 MG/2 ML VIAL ONE (13:19)
[2022-08-09] MEDS ORDERED: VANCOMYCIN HCL 1 GM/VIAL ONE (13:21)
[2022-08-09] MEDS ORDERED: POLYMYXIN B SULFATE 500000 UNITS/VIAL ONE (13:21)
[2022-08-09] MEDS ORDERED: BUPIVACAINE HCL/PF 0.5% (5MG/ML) 10ML ONE (13:22)
[2022-08-09] MEDS ORDERED: LIDOCAINE HCL/EPINEPHRINE 1%-EPI 1:100,000 20 ML VIAL INFIL SCH (13:33)
[2022-08-09] MEDS ORDERED: MEPERIDINE HCL/PF 25MG/ML CPJ IV PRN (14:45)
[2022-08-09] MEDS ORDERED: HYDROMORPHONE HCL/PF 2MG/ML CPJ IV PRN ×2 (14:45→16:30)
[2022-08-09] MEDS ORDERED: ONDANSETRON HCL 4MG/2ML INJ IV PRN (14:45)
[2022-08-09] MEDS ORDERED: LABETALOL 5MG/ML SYR 20 MG/4 ML SYRINGE IV PRN (14:45)
[2022-08-09] MEDS ORDERED: HYDROMORPHONE HCL/PF 2MG/ML CPJ ONE (16:16)
[2022-08-09] MEDS ORDERED: FENTANYL CITRATE/PF 50MCG/ML 2ML VIAL IV PRN (16:30)
[2022-08-09 20:00] VITALS: BP 122/74
[2022-08-09] MEDS: POLYETHYLENE GLYCOL 3350 (17GM) 1 DOSE PACK PO SCH (21:00)
[2022-08-09] MEDS: IRON SUCROSE COMPLEX 100 MG/5 ML ML IV SCH (22:10)
[2022-08-10] VITALS (15 sets, daily range): BP systolic 108–144; BP diastolic 58–82
[2022-08-10] MEDS: HYDROMORPHONE HCL/PF 2MG/ML CPJ IV PRN ×3 (01:18→17:24)
[2022-08-10 08:25] LABS: BASOPHILS % 0.2 % (0.0-2.0); EOSINOPHILS % 0.2 % (0.0-5.0); HEMATOCRIT. 25.7 % (42.0-52.0); HEMOGLOBIN. 8.6 g/dL (14.0-18.0); LYMPHOCYTES % 8.5 % (20.0-50.0); MEAN CORPUSCULAR VOLUME 95.5 fL (80.0-94.0); MEAN PLATELET VOLUME 7.1 fl (7.4-10.4); MONOCYTES % 5.4 % (2.0-8.0); NEUTROPHILS % 85.7 % (40.0-76.0); PLATELET 295 x1000/uL (130-400); RED BLOOD CELL COUNT 2.69 mill/uL (4.7-6.1); RED CELL DISTRIBUTION WIDTH 14.8 % (11.6-14.6)
[2022-08-10 08:37] LABS: PHOSPHORUS 5.7 mg/dL (2.5-4.9)
[2022-08-10] MEDS: NITROGLYCERIN 0.1MG/HR PATCH TOP SCH (09:00)
[2022-08-10] MEDS: PANTOPRAZOLE SODIUM 40 MG/VIAL IV SCH (09:15)
[2022-08-10] MEDS: SEVELAMER CARBONATE 800 MG TABLET PO SCH ×3 (09:15→17:23)
[2022-08-10] MEDS: ATENOLOL 50 MG TABLET PO SCH (09:16)
[2022-08-10] MEDS: CALCITRIOL 0.25MCG CAPSULE PO SCH (09:16)
[2022-08-10] MEDS: NIFEDIPINE XL 60MG TAB PO SCH (09:16)
[2022-08-10] MEDS: FOLIC ACID/VITAMIN B COMP W-C TABLET PO SCH (09:17)
[2022-08-10] MEDS: HYDROCODONE/ACETAMINOPHEN 5/325MG TABLET PO PRN ×2 (09:30→21:26)
[2022-08-10] MEDS: POLYETHYLENE GLYCOL 3350 (17GM) 1 DOSE PACK PO SCH (21:20)
[2022-08-10] MEDS: EPOETIN ALFA-EPBX 10,000 UNIT/ML VIAL SUBCUT SCH (21:20)
[2022-08-11] VITALS: BP 117/71
[2022-08-11 04:00] VITALS: BP 115/71
[2022-08-11] MEDS: HYDROMORPHONE HCL/PF 2MG/ML CPJ IV PRN ×3 (04:10→22:51)
[2022-08-11 08:00] VITALS: BP 112/68
[2022-08-11] MEDS: NIFEDIPINE XL 60MG TAB PO SCH (09:25)
[2022-08-11] MEDS: CALCITRIOL 0.25MCG CAPSULE PO SCH (09:25)
[2022-08-11] MEDS: SEVELAMER CARBONATE 800 MG TABLET PO SCH ×2 (09:26→12:56)
[2022-08-11] MEDS: ATENOLOL 50 MG TABLET PO SCH (09:26)
[2022-08-11] MEDS: PANTOPRAZOLE SODIUM 40 MG/VIAL IV SCH (09:26)
[2022-08-11] MEDS: FOLIC ACID/VITAMIN B COMP W-C TABLET PO SCH (09:37)
[2022-08-11 11:28] LABS: BASOPHILS % 0.3 % (0.0-2.0); EOSINOPHILS % 0.5 % (0.0-5.0); HEMATOCRIT. 24.2 % (42.0-52.0); HEMOGLOBIN. 8.1 g/dL (14.0-18.0); LYMPHOCYTES % 11.7 % (20.0-50.0); MEAN CORPUSCULAR HEMOGLOBIN 32.3 pg (28.0-32.0); MEAN CORPUSCULAR VOLUME 96.2 fL (80.0-94.0); MEAN PLATELET VOLUME 6.9 fl (7.4-10.4); MONOCYTES % 6.6 % (2.0-8.0); NEUTROPHILS % 80.9 % (40.0-76.0); PLATELET 265 x1000/uL (130-400); RED BLOOD CELL COUNT 2.52 mill/uL (4.7-6.1); RED CELL DISTRIBUTION WIDTH 16.3 % (11.6-14.6)
[2022-08-11 11:41] LABS: PHOSPHORUS 5.2 mg/dL (2.5-4.9)
[2022-08-11 12:00] VITALS: BP_SYST 107; BP_SYST 140; BP_DIAS 63; BP_DIAS 83
[2022-08-11 16:00] VITALS: BP 107/63
[2022-08-11 20:00] VITALS: BP 126/65
[2022-08-11] MEDS: POLYETHYLENE GLYCOL 3350 (17GM) 1 DOSE PACK PO SCH (20:51)
[2022-08-12] VITALS: BP 129/75
[2022-08-12 04:00] VITALS: BP 129/75
[2022-08-12] MEDS: HYDROCODONE/ACETAMINOPHEN 5/325MG TABLET PO PRN ×2 (04:58→18:16)
[2022-08-12 08:09] VITALS: BP 146/83
[2022-08-12 08:45] LABS: BASOPHILS % 0.4 % (0.0-2.0); EOSINOPHILS % 1.2 % (0.0-5.0); HEMATOCRIT. 22.2 % (42.0-52.0); HEMOGLOBIN. 7.5 g/dL (14.0-18.0); LYMPHOCYTES % 15.8 % (20.0-50.0); MEAN CORPUSCULAR HEMOGLOBIN 32.7 pg (28.0-32.0); MEAN CORPUSCULAR VOLUME 96.3 fL (80.0-94.0); MEAN PLATELET VOLUME 6.8 fl (7.4-10.4); MONOCYTES % 6.7 % (2.0-8.0); NEUTROPHILS % 75.9 % (40.0-76.0); PLATELET 246 x1000/uL (130-400); RED BLOOD CELL COUNT 2.31 mill/uL (4.7-6.1); RED CELL DISTRIBUTION WIDTH 15.3 % (11.6-14.6)
[2022-08-12] MEDS: SEVELAMER CARBONATE 800 MG TABLET PO SCH ×3 (09:06→18:10)
[2022-08-12] MEDS: CALCITRIOL 0.25MCG CAPSULE PO SCH (09:07)
[2022-08-12] MEDS: ATENOLOL 50 MG TABLET PO SCH (09:07)
[2022-08-12] MEDS: NIFEDIPINE XL 60MG TAB PO SCH (09:08)
[2022-08-12] MEDS: PANTOPRAZOLE SODIUM 40 MG/VIAL IV SCH (09:08)
[2022-08-12] MEDS: FOLIC ACID/VITAMIN B COMP W-C TABLET PO SCH (09:08)
[2022-08-12 09:21] LABS: PHOSPHORUS 5.6 mg/dL (2.5-4.9)
[2022-08-12] MEDS: HYDROMORPHONE HCL/PF 2MG/ML CPJ IV PRN (10:25)
[2022-08-12 12:00] VITALS: BP 143/82
[2022-08-12 16:00] VITALS: BP 107/62
[2022-08-12 20:00] VITALS: BP 149/79
[2022-08-12] MEDS: POLYETHYLENE GLYCOL 3350 (17GM) 1 DOSE PACK PO SCH (21:21)
[2022-08-13] VITALS (14 sets, daily range): BP systolic 123–168; BP diastolic 68–93
[2022-08-13] MEDS: HYDROMORPHONE HCL/PF 2MG/ML CPJ IV PRN ×3 (03:07→20:48)
[2022-08-13] MEDS: CYANOCOBALAMIN 1000MCG TABLET PO SCH (07:50)
[2022-08-13] MEDS: SEVELAMER CARBONATE 800 MG TABLET PO SCH ×3 (07:50→18:14)
[2022-08-13 08:01] LABS: BASOPHILS % 0.3 % (0.0-2.0); EOSINOPHILS % 1.5 % (0.0-5.0); HEMATOCRIT. 22.9 % (42.0-52.0); HEMOGLOBIN. 7.6 g/dL (14.0-18.0); LYMPHOCYTES % 15.9 % (20.0-50.0); MEAN CORPUSCULAR VOLUME 96.5 fL (80.0-94.0); MEAN PLATELET VOLUME 7.4 fl (7.4-10.4); MONOCYTES % 5.6 % (2.0-8.0); NEUTROPHILS % 76.7 % (40.0-76.0); PLATELET 238 x1000/uL (130-400); RED BLOOD CELL COUNT 2.37 mill/uL (4.7-6.1); RED CELL DISTRIBUTION WIDTH 16.1 % (11.6-14.6)
[2022-08-13] MEDS: FOLIC ACID/VITAMIN B COMP W-C TABLET PO SCH (09:00)
[2022-08-13] MEDS ORDERED: TOPUD PO (10:12)
[2022-08-13] MEDS: CALCITRIOL 0.25MCG CAPSULE PO SCH (12:10)
[2022-08-13] MEDS: ATENOLOL 50 MG TABLET PO SCH (12:10)
[2022-08-13] MEDS: PANTOPRAZOLE SODIUM 40 MG/VIAL IV SCH (12:11)
[2022-08-13] MEDS: NIFEDIPINE XL 60MG TAB PO SCH (12:11)
[2022-08-13] MEDS: FERROUS SULFATE 325MG TABLET PO SCH ×3 (12:11→18:14)
[2022-08-13] MEDS ORDERED: EPOETIN ALFA-EPBX 4,000 UNIT/ML VIAL SUBCUT SCH (21:00)
[2022-08-13] MEDS: EPOETIN ALFA-EPBX 10,000 UNIT/ML VIAL SUBCUT SCH (21:59)
[2022-08-13] MEDS: POLYETHYLENE GLYCOL 3350 (17GM) 1 DOSE PACK PO SCH (21:59)
[2022-08-13] MEDS: CLONIDINE 0.1MG TABLET PO PRN (22:00)
[2022-08-14] VITALS: BP 130/76
[2022-08-14 04:00] VITALS: BP 104/65
[2022-08-14] MEDS: HYDROCODONE/ACETAMINOPHEN 5/325MG TABLET PO PRN (04:10)
[2022-08-14 08:00] VITALS: BP 127/75
[2022-08-14 08:36] LABS: BASOPHILS % 0.3 % (0.0-2.0); EOSINOPHILS % 0.9 % (0.0-5.0); HEMATOCRIT. 23.8 % (42.0-52.0); HEMOGLOBIN. 7.9 g/dL (14.0-18.0); LYMPHOCYTES % 13.5 % (20.0-50.0); MEAN CORPUSCULAR HEMOGLOBIN 32.5 pg (28.0-32.0); MEAN CORPUSCULAR VOLUME 97.8 fL (80.0-94.0); MEAN PLATELET VOLUME 7.1 fl (7.4-10.4); MONOCYTES % 6.7 % (2.0-8.0); NEUTROPHILS % 78.6 % (40.0-76.0); PLATELET 237 x1000/uL (130-400); RED BLOOD CELL COUNT 2.43 mill/uL (4.7-6.1); RED CELL DISTRIBUTION WIDTH 16.8 % (11.6-14.6)
[2022-08-14] MEDS: SEVELAMER CARBONATE 800 MG TABLET PO SCH ×3 (08:46→17:52)
[2022-08-14] MEDS: ATENOLOL 50 MG TABLET PO SCH (08:46)
[2022-08-14] MEDS: CYANOCOBALAMIN 1000MCG TABLET PO SCH (08:47)
[2022-08-14] MEDS: NIFEDIPINE XL 60MG TAB PO SCH (08:47)
[2022-08-14] MEDS: CALCITRIOL 0.25MCG CAPSULE PO SCH (08:47)
[2022-08-14] MEDS: FERROUS SULFATE 325MG TABLET PO SCH ×3 (08:47→17:52)
[2022-08-14] MEDS: PANTOPRAZOLE SODIUM 40 MG/VIAL IV SCH (08:50)
[2022-08-14] MEDS: FOLIC ACID/VITAMIN B COMP W-C TABLET PO SCH (09:07)
[2022-08-14 10:34] LABS: PHOSPHORUS 5.6 mg/dL (2.5-4.9)
[2022-08-14 12:00] VITALS: BP 103/63
[2022-08-14] MEDS: HYDROMORPHONE HCL/PF 2MG/ML CPJ IV PRN ×2 (13:01→19:45)
[2022-08-14 16:00] VITALS: BP 122/67
[2022-08-14 20:00] VITALS: BP 130/70
[2022-08-14] MEDS: POLYETHYLENE GLYCOL 3350 (17GM) 1 DOSE PACK PO SCH (20:26)
[2022-08-15] VITALS (16 sets, daily range): BP systolic 127–164; BP diastolic 65–92
[2022-08-15] MEDS: NIFEDIPINE XL 60MG TAB PO SCH (09:00)
[2022-08-15] MEDS: ATENOLOL 50 MG TABLET PO SCH (09:00)
[2022-08-15] MEDS: FOLIC ACID/VITAMIN B COMP W-C TABLET PO SCH (09:32)
[2022-08-15] MEDS: CALCITRIOL 0.25MCG CAPSULE PO SCH (09:32)
[2022-08-15] MEDS: CYANOCOBALAMIN 1000MCG TABLET PO SCH (09:32)
[2022-08-15] MEDS: SEVELAMER CARBONATE 800 MG TABLET PO SCH ×3 (09:32→18:49)
[2022-08-15] MEDS: FERROUS SULFATE 325MG TABLET PO SCH ×3 (09:32→18:49)
[2022-08-15] MEDS: PANTOPRAZOLE SODIUM 40 MG/VIAL IV SCH (09:34)
[2022-08-15] MEDS: HYDROMORPHONE HCL/PF 2MG/ML CPJ IV PRN ×3 (09:35→23:32)
[2022-08-15] MEDS: HYDROCODONE/ACETAMINOPHEN 5/325MG TABLET PO PRN (13:43)
[2022-08-15 17:31] LABS: BASOPHILS % 0.3 % (0.0-2.0); EOSINOPHILS % 1.3 % (0.0-5.0); HEMATOCRIT. 22.6 % (42.0-52.0); HEMOGLOBIN. 7.4 g/dL (14.0-18.0); LYMPHOCYTES % 16.7 % (20.0-50.0); MEAN CORPUSCULAR HEMOGLOBIN 32.2 pg (28.0-32.0); MEAN CORPUSCULAR VOLUME 98.1 fL (80.0-94.0); MONOCYTES % 8.7 % (2.0-8.0); PLATELET 224 x1000/uL (130-400); RED BLOOD CELL COUNT 2.31 mill/uL (4.7-6.1); RED CELL DISTRIBUTION WIDTH 17.8 % (11.6-14.6)
[2022-08-15] MEDS: POLYETHYLENE GLYCOL 3350 (17GM) 1 DOSE PACK PO SCH (20:17)
[2022-08-15] MEDS: EPOETIN ALFA-EPBX 10,000 UNIT/ML VIAL SUBCUT SCH (20:17)
[2022-08-16] VITALS (7 sets, daily range): BP systolic 120–174; BP diastolic 75–100
[2022-08-16] MEDS: HYDROCODONE/ACETAMINOPHEN 10/325MG TABLET PO PRN ×2 (09:05→18:08)
[2022-08-16] MEDS: SEVELAMER CARBONATE 800 MG TABLET PO SCH ×3 (09:06→18:08)
[2022-08-16] MEDS: FERROUS SULFATE 325MG TABLET PO SCH ×3 (09:06→18:08)
[2022-08-16] MEDS: NIFEDIPINE XL 60MG TAB PO SCH (09:07)
[2022-08-16] MEDS: ATENOLOL 50 MG TABLET PO SCH (09:07)
[2022-08-16] MEDS: CYANOCOBALAMIN 1000MCG TABLET PO SCH (09:07)
[2022-08-16] MEDS: FOLIC ACID/VITAMIN B COMP W-C TABLET PO SCH (09:07)
[2022-08-16] MEDS: CALCITRIOL 0.25MCG CAPSULE PO SCH (09:08)
[2022-08-16] MEDS: PANTOPRAZOLE SODIUM 40 MG/VIAL IV SCH (09:08)
[2022-08-16] MEDS: HYDROMORPHONE HCL/PF 2MG/ML CPJ IV PRN (13:45)
[2022-09-13] MEDS ORDERED: HYDROCODONE/ACETAMINOPHEN 10/325MG TABLET PO PRN (07:15)
== END 2022-08-16 20:44 | DRG 323 ==
LOC: ER 14:19 → 8WST 20:37 → 6EST 07-24 13:34 → 8WST 07-25 01:13 → 6EST 08-06 18:54
PROVIDERS: ADMIT Internal Medicine Pulmonary Disease; ATTEND Internal Medicine Pulmonary Disease
PROC: 5A1D70Z Performance of Urinary Filtration, Intermittent, Less than 6 Hours Per Day (ICD-10-PCS; 2022-07-21)
PROC: 0SRS0J9 Replacement of Left Hip Joint, Femoral Surface with Synthetic Substitute, Cemented, Open Approach (ICD-10-PCS; principal; 2022-07-24)
PROC: 5A1D70Z Performance of Urinary Filtration, Intermittent, Less than 6 Hours Per Day (ICD-10-PCS; 2022-07-25)
PROC: 0SRR0J9 Replacement of Right Hip Joint, Femoral Surface with Synthetic Substitute, Cemented, Open Approach (ICD-10-PCS; 2022-07-26)
PROC: 5A1D70Z Performance of Urinary Filtration, Intermittent, Less than 6 Hours Per Day (ICD-10-PCS; 2022-07-26)
PROC: 5A1D70Z Performance of Urinary Filtration, Intermittent, Less than 6 Hours Per Day (ICD-10-PCS; 2022-07-29)
PROC: 5A1D70Z Performance of Urinary Filtration, Intermittent, Less than 6 Hours Per Day (ICD-10-PCS; 2022-07-31)
PROC: 5A1D70Z Performance of Urinary Filtration, Intermittent, Less than 6 Hours Per Day (ICD-10-PCS; 2022-08-05)
PROC: 5A1D70Z Performance of Urinary Filtration, Intermittent, Less than 6 Hours Per Day (ICD-10-PCS; 2022-08-06)
PROC: 5A1D70Z Performance of Urinary Filtration, Intermittent, Less than 6 Hours Per Day (ICD-10-PCS; 2022-08-07)
PROC: 30233N1 Transfusion of Nonautologous Red Blood Cells into Peripheral Vein, Percutaneous Approach (ICD-10-PCS; 2022-08-08)
PROC: 0PSD04Z Reposition Left Humeral Head with Internal Fixation Device, Open Approach (ICD-10-PCS; 2022-08-09)
PROC: 5A1D70Z Performance of Urinary Filtration, Intermittent, Less than 6 Hours Per Day (ICD-10-PCS; 2022-08-09)
PROC: 5A1D70Z Performance of Urinary Filtration, Intermittent, Less than 6 Hours Per Day (ICD-10-PCS; 2022-08-10)
PROC: 5A1D70Z Performance of Urinary Filtration, Intermittent, Less than 6 Hours Per Day (ICD-10-PCS; 2022-08-12)
PROC: 5A1D70Z Performance of Urinary Filtration, Intermittent, Less than 6 Hours Per Day (ICD-10-PCS; 2022-08-14)
PROC: 5A1D70Z Performance of Urinary Filtration, Intermittent, Less than 6 Hours Per Day (ICD-10-PCS; 2022-08-16)
DX: S72.091A Other fracture of head and neck of right femur, initial encounter for closed fracture (principal); J96.90 Respiratory failure, unspecified, unspecified whether with hypoxia or hypercapnia; S72.092A Other fracture of head and neck of left femur, initial encounter for closed fracture; S42.292A Other displaced fracture of upper end of left humerus, initial encounter for closed fracture; I12.0 Hypertensive chronic kidney disease with stage 5 chronic kidney disease or end stage renal disease; E83.51 Hypocalcemia; E87.1 Hypo-osmolality and hyponatremia; N18.6 End stage renal disease; I80.8 Phlebitis and thrombophlebitis of other sites; D50.9 Iron deficiency anemia, unspecified; W01.0XXA Fall on same level from slipping, tripping and stumbling without subsequent striking against object, initial encounter; E87.5 Hyperkalemia; Z20.822 Contact with and (suspected) exposure to COVID-19; I51.7 Cardiomegaly; M81.0 Age-related osteoporosis without current pathological fracture; N25.81 Secondary hyperparathyroidism of renal origin; K59.00 Constipation, unspecified; R26.9 Unspecified abnormalities of gait and mobility; Z96.643 Presence of artificial hip joint, bilateral; Z99.2 Dependence on renal dialysis; Y93.89 Activity, other specified; Z88.8 Allergy status to other drugs, medicaments and biological substances; Z82.49 Family history of ischemic heart disease and other diseases of the circulatory system; Z79.899 Other long term (current) drug therapy; Y92.89 Other specified places as the place of occurrence of the external cause; Y99.8 Other external cause status
CPT/HCPCS: 36415; 71045; 72170; 73030; 73060; 73200; 73522; 76000; 80048; 80053; 80320; 82330; 82728; 83540; 83550; 83735; 83880; 84100; 84132; 84484; 85014; 85018; 85025; 85027; 86705; 86709; 86803; 86850; 86900; 86920; 87340; 87426; 88311; 90935; 93970; 97110; 97116; 97163; 97164; 97167; 97530; 97535; 99285; A4565; C1713; C1776; C1893; C9113; J0330; J0360; J0690; J0885; J1100; J1170; J1650; J2175; J2250; J2270; J2405; J2704; J2710; J3010; J3370; J3490; J7050; P9016; Q0163; G0480

== ENCOUNTER 2023-06-19 23:11 | Emergency (ER) | payer MEDICAID, OTHER ==
[~2023-06-19] VITALS: Ht 165.1 cm; Wt 75.0 kg
[~2023-06-19 23:11] MED LIST changes: -ATEN50TA PO; +TOPUD PO
[2023-06-19] MEDS ORDERED: TRANEXAMIC ACID 1,000 MG/10 ML IV ONE (23:30)
[2023-06-19 23:35] VITALS: O2SAT 100
[2023-06-20] MEDS ORDERED: LIDOCAINE HCL/EPINEPHRINE 1%-EPI 1:100,000 50 ML VIAL INFIL ONE (02:00)
[2023-06-20 02:23] VITALS: TEMP 98.2
[2023-06-20] MEDS ORDERED: LIDOCAINE HCL 1%/EPI 1:200,000 30 ML VIAL IJ NR (02:45)
[2023-06-20] MEDS ORDERED: HYDROCODONE/ACETAMINOPHEN 5/325MG TABLET PO ONE (03:00)
[2023-06-20 03:35] VITALS: BP 162/86; PULSE 88; RESP 12
== END 2023-06-20 04:11 | disposition home or self-care (01) ==
LOC: ER 23:13
DX: T82.838A Hemorrhage due to vascular prosthetic devices, implants and grafts, initial encounter (principal); I13.11 Hypertensive heart and chronic kidney disease without heart failure, with stage 5 chronic kidney disease, or end stage renal disease; N18.6 End stage renal disease; Z99.2 Dependence on renal dialysis; Z88.8 Allergy status to other drugs, medicaments and biological substances; Z98.890 Other specified postprocedural states; Y92.89 Other specified places as the place of occurrence of the external cause
CPT/HCPCS: 99283; 12001; 96374; J3490; Z7610 ×4

== ENCOUNTER 2023-07-17 23:04 | Emergency (ER) | payer OTHER ==
[~2023-07-17] VITALS: Ht 154.9 cm; Wt 49.0 kg
[2023-07-17 23:12] VITALS: O2SAT 100
[2023-07-18] MEDS ORDERED: LIDOCAINE HCL 1% 20ML VIAL (Pyxis) INJ INFIL ONE (00:30)
[2023-07-18] MEDS ORDERED: CLONIDINE 0.2MG TABLET PO ONE (00:45)
[2023-07-18] MEDS ORDERED: HYDROCODONE/ACETAMINOPHEN 5/325MG TABLET PO ONE (00:45)
[2023-07-18] MEDS ORDERED: CLONIDINE 0.1MG TABLET PO NR (01:00)
[2023-07-18 01:32] VITALS: BP 161/98; PULSE 83; RESP 20; TEMP 98.2
== END 2023-07-18 01:36 | disposition home or self-care (01) ==
LOC: ER 23:04
DX: T82.838A Hemorrhage due to vascular prosthetic devices, implants and grafts, initial encounter (principal); I12.0 Hypertensive chronic kidney disease with stage 5 chronic kidney disease or end stage renal disease; N18.6 End stage renal disease; Z99.2 Dependence on renal dialysis; Z98.890 Other specified postprocedural states; Z88.8 Allergy status to other drugs, medicaments and biological substances; X58.XXXA Exposure to other specified factors, initial encounter; Y93.89 Activity, other specified; Y92.89 Other specified places as the place of occurrence of the external cause; Y99.8 Other external cause status
CPT/HCPCS: 99283; J3490; Z7610

== ENCOUNTER 2023-08-21 10:53 | Emergency (ER) | payer MEDICAID, OTHER ==
[~2023-08-21] VITALS: Ht 157.5 cm; Wt 49.9 kg
[2023-08-21 11:22] VITALS: TEMP 98.1; O2SAT 100
[2023-08-21 12:00] VITALS: BP 135/80; PULSE 102; RESP 16
[2023-08-21] MEDS ORDERED: KETOROLAC 15MG/ML VIAL IM ONE (12:00)
[2023-08-21] MEDS ORDERED: ACETAMINOPHEN 325MG TABLET PO ONE (12:00)
[2023-08-21] MEDS ORDERED: LIDO700A15 TP (15:41)
[2023-08-21] MEDS ORDERED: METH-653 MT (15:41)
[2023-08-21] MEDS ORDERED: TOPUD MT (15:41)
== END 2023-08-21 16:09 | disposition home or self-care (01) ==
LOC: ER 10:53
DX: M54.9 Dorsalgia, unspecified (principal); M25.551 Pain in right hip; M25.552 Pain in left hip; I12.0 Hypertensive chronic kidney disease with stage 5 chronic kidney disease or end stage renal disease; N18.6 End stage renal disease; Z88.9 Allergy status to unspecified drugs, medicaments and biological substances; Z79.899 Other long term (current) drug therapy; W01.0XXA Fall on same level from slipping, tripping and stumbling without subsequent striking against object, initial encounter; Y93.89 Activity, other specified; Y92.89 Other specified places as the place of occurrence of the external cause; Y99.8 Other external cause status
CPT/HCPCS: 99285; 72192; 73700; 96372; J1885